=== PATIENT | female | born 1985 | race Caucasian/White ===

== ENCOUNTER 2016-12-30 18:51 | Emergency (ER) | payer OTHER ==
[~2016-12-30 18:51] MED LIST: ADVAIR 1001 DISK W/D IH; LOESTRIN 24 FE1 TAB PO; VENTOLIN HFA18 GM IH; XANAX1 MG PO
[2016-12-30] MEDS ORDERED: PROZAC20 M3 PO (18:59)
[2016-12-30] MEDS ORDERED: LEVAQUIN750 M1 PO (18:59)
[2016-12-30] MEDS ORDERED: TAMIFLU75 MG/CAP PO (18:59)
[2016-12-30] MEDS ORDERED: JUNEL FE 24 TA1 EACH PO (18:59)
[2016-12-30] MEDS ORDERED: PROMETHAZINE-D118 ML (19:00)
[2016-12-30] MEDS ORDERED: ZYRTEC10 M7 PO (19:00)
== END 2016-12-30 20:36 ==
LOC: EDMED 18:51
DX: J10.00 Influenza due to other identified influenza virus with unspecified type of pneumonia (principal); F41.9 Anxiety disorder, unspecified; Z79.899 Other long term (current) drug therapy; Z88.1 Allergy status to other antibiotic agents